=== PATIENT | male | born 1965 | race African-American/Black ===

== ENCOUNTER 2018-02-04 12:19 | Emergency (ER) | payer MEDICARE, MEDICAID ==
[~2018-02-04] VITALS: Ht 175.3 cm; Wt 105.0 kg
[2018-02-04] MEDS ORDERED: KEPP500 PO (12:27)
[2018-02-04] MEDS ORDERED: CARB200T PO (12:27)
[2018-02-04] MEDS ORDERED: LEVETIRACETAM 500MG PREMIX 100 ML IV ONE (12:45)
[2018-02-04] MEDS ORDERED: LORAZEPAM 2MG/ML CPJ IV ONE (12:45)
[2018-02-04 13:15] LABS: BASOPHILS % 0.6 % (0.0-2.0); EOSINOPHILS % 0.3 % (0.0-5.0); HEMOGLOBIN. 14.5 g/dL (14.0-18.0); LYMPHOCYTES % 10.5 % (20.0-50.0); MEAN CORPUSCULAR HEMOGLOBIN 33.5 pg (28.0-32.0); MEAN CORPUSCULAR VOLUME 99.5 fL (80.0-94.0); MEAN PLATELET VOLUME 10.4 fl (7.4-10.4); MONOCYTES % 5.4 % (2.0-8.0); NEUTROPHILS % 83.2 % (40.0-76.0); PLATELET 168 x1000/uL (130-400); RED BLOOD CELL COUNT 4.33 mill/uL (4.7-6.1); RED CELL DISTRIBUTION WIDTH 12.9 % (11.6-14.6)
[2018-02-04 13:21] LABS: CHLORIDE 110 mEq/L (98-107)
[2018-02-04 13:28] LABS: CARBAMAZEPINE 4.4 ug/mL (4-12)
[2018-02-04 14:17] VITALS: BP 163/92
== END 2018-02-04 14:18 | disposition home or self-care (01) ==
LOC: ER 13:33
DX: G40.909 Epilepsy, unspecified, not intractable, without status epilepticus (principal); R03.0 Elevated blood-pressure reading, without diagnosis of hypertension
CPT/HCPCS: 36415; 80053; 80156; 85025; 96365; 96375; 99284; J1953; J2060